=== PATIENT | male | born 1975 | race African-American/Black ===

== ENCOUNTER 2020-02-04 04:50 | Emergency (ER) | payer OTHER ==
[~2020-02-04] VITALS: Ht 198.1 cm; Wt 150.0 kg
--- NOTE | 2020-02-04 04:55 | PHYS DOC ---
Past History Past Medical History: Hypertension, Other Past Medical History Elevated L diaphragm (JACI MORALES MD) Past Surgical History Circumcision (JACI MORALES MD) Adult General Chief Complaint Chief Complaint: ..." I woke up with this really... severe pain... in ginger in my back.. radiates around to lower abd.. and seem to go into my Rt. testicle.. " HPI HPI Patient is a 44 year old male who presents with above hx and complaints of abd. pain. Pain localizes in right flank, right lower abdomen quadrant and into right testicle. No history of bad food intake. Last ate spaghetti approximately 2100 hrs. Recent travel to [place] for approximately 10 days returned on the . No one ill in [place]. Patient does have a history of hypertension and did not take his hypertensive meds yesterday.. Patient states he did have some orange- colored urine but it did clear in color when he urinated before coming to ED. Had had a normal stool yesterday. Is on a [employer] water system. No specific ill contacts. No history immunosuppression. No history of renal stones with him or family members. No history of coli colitis with him or family members. Patient normally follows at [place] or [place]. (JACI MORALES MD) Review of Systems Review of Systems Constitutional: Denies fever or chills [] Eyes: Denies change in visual acuity, redness, or eye pain [] HENT: Denies nasal congestion or sore throat [] Respiratory: Denies cough or shortness of breath [] Cardiovascular: No additional information not addressed in HPI [] GI: Complaints of right lower abdomen pain abdominal pain, nausea. Denies, vomiting, bloody stools or diarrhea [] : Denies dysuria or hematuria [] Musculoskeletal: Denies back pain or joint pain [] Integument: Denies rash or skin lesions [] Neurologic: Denies headache, focal weakness or sensory changes [] Endocrine: Denies polyuria or polydipsia [] All other systems were reviewed and found to be within normal limits, except as documented in this note. (JACI MORALES MD) Family History Family History Noncontributory to presentation (JACI MORALES MD) Current Medications Current Medications See nursing for home meds (JACI MORALES MD) Allergies Allergies Allergic to penicillin (JACI MORALES MD) Physical Exam Physical Exam Constitutional: in acute distress, non-toxic appearance. [] HENT: Normocephalic, atraumatic, bilateral external ears normal, oropharynx moist, no oral exudates, nose normal. [] Eyes: PERRLA, EOMI, conjunctiva normal, no discharge. [] Neck: Normal range of motion, no tenderness, supple, no stridor. [] Cardiovascular:Heart rate regular rhythm, no murmur . PMI to Lt. Lungs & Thorax: Bilateral breath sounds equal apex auscultation [] Abdomen: Bowel sounds decreased soft, right lower abdomen tenderness, no masses, no pulsatile masses. [] Circumcised male. No penile discharge. Right low flank pain that radiates to his testicle. No focalization arm rebound. Patient unable to produce a urine at time of first exam. Pulses equal at femoral area. Mild tenderness to right testicle area. Skin: Warm, diaphoretic, no erythema, no rash. [] Back: No tenderness, no CVA tenderness. [] Extremities: No tenderness, no cyanosis, no clubbing, ROM intact, no edema. No true psoas sign. Patient is able to jump up and down with out exacerbating his right lower quadrant pain. Neurologic: Alert and oriented X 3, normal motor function, normal sensory function, no focal deficits noted. [] Psychologic: Affect anxious, judgement normal, mood normal. [] (JACI MORALES MD) EKG EKG I interpretation EKG shows a sinus rhythm at 76 bpm. No findings acute STEMI[] (JACI MORALES MD) Radiology/Procedures Radiology/Procedures []Signed PATIENT: LYNETTE RIVERA DACCOUNT: [id number] : 1975 LOCATION: ER AGE: 44 SEX: M EXAM STATUS: REG ER ORD. PHYSICIAN: JACI MORALES MD REASON: Rt. lower quadrant pain, PROCEDURE: CT ABDOMEN PELVIS WO CONTRAST INDICATION: Right abdomen pain COMPARISON: None. TECHNIQUE: Axial CT images obtained through the abdomen and pelvis without contrast. One or more of the following individualized dose reduction techniques were utilized for this examination: 1. Automated exposure control; 2. Adjustment of the mA and/or kV according to patient size; 3. Use of iterative reconstruction technique. FINDINGS: Linear opacities left lung base. Elevated left hemidiaphragm. Abdominal aorta is not aneurysmal. Fat-containing inguinal hernias. Liver is low density and appears enlarged. Can be seen with fatty infiltration. Small fat-containing umbilical hernia. No peripancreatic fluid collection. Spleen unremarkable. No left-sided hydronephrosis. Urinary bladder is partially distended. Right-sided hydronephrosis with perinephric edema. 2 mm right distal ureter stone. Urinary bladder is partially distended. Colonic diverticulosis. No periappendiceal inflammatory changes. No dilated loops of bowel to suggest obstruction. Degenerative changes of the spine with multilevel central canal and neural foraminal stenosis. Degenerative changes of the hips. IMPRESSION: * Right-sided hydronephrosis and hydroureter with perinephric edema and a right distal ureter stone. * Degenerative changes the spine with disc protrusions and osteophyte formation with multilevel central canal neural foraminal stenosis. There is also epidural lipomatosis. * Elevation left hemidiaphragm with airspace opacity at the left lung base. Diaphragmatic paralysis is not excluded given this finding. * Liver is low density. Nonspecific but can be seen with fatty infiltration Electronically signed by: David Guzman MD (02/04/2020 6:13 AM) [id number] DICTATED AND SIGNED BY: DAVID GUZMAN MD DATE: 02/04/20 0613 CC: AYESHA VELAZQUEZ; JACI MORALES MD ~ (JACI MORALES MD) Impressions: INDICATION: Right abdomen pain COMPARISON: None. TECHNIQUE: Axial CT images obtained through the abdomen and pelvis without contrast. One or more of the following individualized dose reduction techniques were utilized for this examination: 1. Automated exposure control; 2. Adjustment of the mA and/or kV according to patient size; 3. Use of iterative reconstruction technique. FINDINGS: Linear opacities left lung base. Elevated left hemidiaphragm. Abdominal aorta is not aneurysmal. Fat-containing inguinal hernias. Liver is low density and appears enlarged. Can be seen with fatty infiltration. Small fat-containing umbilical hernia. No peripancreatic fluid collection. Spleen unremarkable. No left-sided hydronephrosis. Urinary bladder is partially distended. Right-sided hydronephrosis with perinephric edema. 2 mm right distal ureter stone. Urinary bladder is partially distended. Colonic diverticulosis. No periappendiceal inflammatory changes. No dilated loops of bowel to suggest obstruction. Degenerative changes of the spine with multilevel central canal and neural foraminal stenosis. Degenerative changes of the hips. IMPRESSION: * Right-sided hydronephrosis and hydroureter with perinephric edema and a right distal ureter stone. * Degenerative changes the spine with disc protrusions and osteophyte formation with multilevel central canal neural foraminal stenosis. There is also epidural lipomatosis. * Elevation left hemidiaphragm with airspace opacity at the left lung base. Diaphragmatic paralysis is not excluded given this finding. * Liver is low density. Nonspecific but can be seen with fatty infiltration Electronically signed by: David Guzman MD (02/04/2020 6:13 AM) [id number] (LONNIE DECKER DO) Course & Med Decision Making Course & Med Decision Making Pertinent Labs and Imaging studies reviewed. (See chart for details) Pt. pain resolved at 5:55 hrs. Pt. endorsed to Dr. Decker at shift change. CT pending at shift change. Appears to have Rt distal stone and hydronephrosis. Does have a elevated Lt diaphragm. Impression: 1. Right flank and lower quadrant Abdomen Pain 2. Accelerated HTN- ( Hx did not take meds yesterday) 3. Elevated Lt. diaphragm and hiatal hernia. 4. Distal Renal Stone- with hydronephrosis- Rt side[] (JACI MORALES MD) Course & Med Decision Making The patient has a right-sided kidney stone. It is 2 mm in size. This should pass. Patient urinalysis is negative for infection. He does not require antibiotics at this time. I have recommended that he stay well-hydrated. I will discharge him with Zofran and a short course of [place] 5/325 for his pain. He is stable for discharge at this time. (LONNIE DECKER DO) Dragon Disclaimer Dragon Disclaimer This electronic medical record was generated, in whole or in part, using a voice recognition dictation system. (JACI MORALES MD) Departure Departure: Impression: Primary Impression: Kidney stone on right side Disposition: 01 HOME, SELF-CARE Condition: IMPROVED Patient Instructions: Kidney Stones, [id number]-[id number] Scripts Ondansetron (ONDANSETRON ODT) 4 Mg Tab.rapdis 1 TAB PO PRN Q6-8HRS PRN for VOMITING, #16 TAB Prov: LONNIE DECKER DO 02/04/20 Hydrocodone Bit/Acetaminophen (NORCO 5-325 TABLET) 1 Each Tablet 1 TAB PO PRN Q6HRS PRN for PAIN, #10 TAB 0 Refills Prov: LONNIE DECKER DO 02/04/20 Dragon Disclaimer This chart was dictated in whole or in part using Voice Recognition software in a busy, high-work load, and often noisy Emergency Department environment. It may contain unintended and wholly unrecognized errors or omissions. (JACI MORALES MD) Dragon Disclaimer This chart was dictated in whole or in part using Voice Recognition software in a busy, high-work load, and often noisy Emergency Department environment. It may contain unintended and wholly unrecognized errors or omissions. (JACI MORALES MD) JACI MORALES MD Feb 04, 2020 04:55 LONNIE DECKER DO Feb 04, 2020 06:25
[2020-02-04] MEDS ORDERED: KETOROLAC 30 MG/ML VIAL. ONE (05:17)
--- NOTE | 2020-02-04 05:17 | EKG ---
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
[2020-02-04 05:20] LABS: BASO % 1 % (0-3); EOS % 1 % (0-3); HEMATOCRIT 42.5 % (39.0-53.0); HEMOGLOBIN 13.4 g/dL (13.0-17.5); LYMPH # 1.6 x10^3/uL (1.0-4.8); LYMPH % 22 % (24-48); MEAN CORPUSCULAR HEMOGLOBIN 25 pg (25-35); MEAN CORPUSCULAR HGB CONC 32 g/dL (31-37); MEAN CORPUSCULAR VOLUME 81 fL (79-100); MONO # 0.7 x10^3/uL (0.0-1.1); MONO % 10 % (0-9); NEUT # 4.8 x10^3uL (1.8-7.7); NEUT % 66 % (31-73); PLATELET COUNT 181 x10^3/uL (140-400); RED BLOOD COUNT 5.27 x10^6/uL (4.30-5.70); RED CELL DISTRIBUTION WIDTH 13.8 % (11.5-14.5); WHITE BLOOD COUNT 7.3 x10^3/uL (4.0-11.0)
[2020-02-04 05:27] LABS: CALCIUM 8.9 mg/dL (8.5-10.1); CREATININE 1.4 mg/dL (0.7-1.3); GFR 66.6
[2020-02-04] MEDS ORDERED: FAMOTIDINE 20 MG/2 ML VIAL IVP ONE (05:30)
[2020-02-04] MEDS ORDERED: KETOROLAC 30 MG/ML VIAL. IVP ONE (05:30)
[2020-02-04] MEDS ORDERED: IV RINGERS SOLUTION,LACTATED 1,000 ML IV SCH (05:30)
[2020-02-04] MEDS ORDERED: ONDANSETRON PF 4 MG/2 ML VIAL. IVP ONE (05:30)
[2020-02-04 05:32] LABS: POTASSIUM 4.1 mmol/L (3.5-5.1)
[2020-02-04 05:34] LABS: ALBUMIN 4.2 g/dL (3.4-5.0); DIRECT BILIRUBIN 0.1 mg/dL (0.0-0.2); TOTAL BILIRUBIN 0.4 mg/dL (0.2-1.0); TOTAL PROTEIN 8.2 g/dL (6.4-8.2)
--- NOTE | 2020-02-04 06:02 | RAD ---
INDICATION: Abdomen pain COMPARISON: None. IMPRESSION: Abdomen: 4 views obtained. Elevation the left hemidiaphragm with linear opacity at the left lung base which could be from associated atelectasis with infiltrate not excluded. Cannot exclude causes such as diaphragmatic paralysis given the elevation. Air-filled distended stomach is seen underneath the left hemidiaphragm. Air scattered throughout the large and small bowel in a nonspecific pattern. Calcifications in the bilateral hemipelvis. Electronically signed by: Godfrey Arce MD (02/04/2020 5:59 AM) [id number]
--- NOTE | 2020-02-04 06:16 | RAD ---
INDICATION: Right abdomen pain COMPARISON: None. TECHNIQUE: Axial CT images obtained through the abdomen and pelvis without contrast. One or more of the following individualized dose reduction techniques were utilized for this examination: 1. Automated exposure control; 2. Adjustment of the mA and/or kV according to patient size; 3. Use of iterative reconstruction technique. FINDINGS: Linear opacities left lung base. Elevated left hemidiaphragm. Abdominal aorta is not aneurysmal. Fat-containing inguinal hernias. Liver is low density and appears enlarged. Can be seen with fatty infiltration. Small fat-containing umbilical hernia. No peripancreatic fluid collection. Spleen unremarkable. No left-sided hydronephrosis. Urinary bladder is partially distended. Right-sided hydronephrosis with perinephric edema. 2 mm right distal ureter stone. Urinary bladder is partially distended. Colonic diverticulosis. No periappendiceal inflammatory changes. No dilated loops of bowel to suggest obstruction. Degenerative changes of the spine with multilevel central canal and neural foraminal stenosis. Degenerative changes of the hips. IMPRESSION: * Right-sided hydronephrosis and hydroureter with perinephric edema and a right distal ureter stone. * Degenerative changes the spine with disc protrusions and osteophyte formation with multilevel central canal neural foraminal stenosis. There is also epidural lipomatosis. * Elevation left hemidiaphragm with airspace opacity at the left lung base. Diaphragmatic paralysis is not excluded given this finding. * Liver is low density. Nonspecific but can be seen with fatty infiltration Electronically signed by: Godfrey Arce MD (02/04/2020 6:13 AM) [id number]
[2020-02-04 07:07] LABS: BACTERIA,URINE FEW /HPF (0-FEW); BILIRUBIN,URINE NEG (NEG); CLARITY,URINE CLEAR; COLOR,URINE YELLOW; GLUCOSE,URINE NEG (NEG); NITRITE,URINE NEG (NEG); SQUAMOUS EPITHELIAL CELL,UR OCC /LPF; UROBILINOGEN,URINE 0.2 mg/dL (0.2 mg/dL); WBC,URINE RARE /HPF (0-4)
[2020-02-04 07:08] LABS: HYALINE CASTS, URINE OCC /HPF
[2020-02-04] MEDS ORDERED: HYDR-3165 PO (07:13)
[2020-02-04] MEDS ORDERED: ONDA4TAB12 PO (07:13)
[2020-02-04 07:19] VITALS: BP 152/64
== END 2020-02-04 07:20 | disposition home or self-care (01) ==
LOC: ER 04:50
DX: N20.0 Calculus of kidney (principal); I10 Essential (primary) hypertension; Z88.0 Allergy status to penicillin
CPT/HCPCS: 36415; 74022; 74176; 80048; 80076; 81001; 82150; 82550; 83690; 84484; 85025; 85610; 85730; 93005; 96374; 96375; 99285; J1885; J2405; J3490; J7120